=== PATIENT | male | born 1995 | race Caucasian/White ===

== ENCOUNTER 2017-08-13 14:00 | Inpatient (IN) ==
[2017-08-13 14:43] LABS: Basophils # 0.1 K/mm3 (0-0.2); Basophils % 0.3 % (0.1-2.0); Eosinophils # 0.2 K/mm3 (0.0-0.4); Eosinophils % 1.1 % (0.1-12.0); Hemoglobin 16.8 g/dL (14.1-18.0); Lymphocytes % 6.5 K/mm3 (10-50); Mean Corpuscular Hemoglobin 32.2 pg (27.0-31.2); Mean Platelet Volume 7.7 fl (7.4-10.4); Monocytes # 1.3 K/mm3 (0.1-1.0); Monocytes % 8.5 % (1.7-9.3); Neutrophils # 13.1 K/mm3 (1.8-7.8); Neutrophils % 83.6 % (37.0-80.0); Platelet Count 194 K/mm3 (142-424); Red Blood Count 5.21 M/mm3 (4.60-6.20); Red Cell Distribution Width 12.6 % (11.5-17.5); White Blood Count 15.7 K/mm3 (4.8-10.8)
[2017-08-13 14:53] LABS: Albumin Level 3.9 gm/dL (3.4-5.0); Anion Gap 11.1 mEq/L (5-15); Bilirubin,Total 0.7 mg/dL (0.2-1.0); Calcium 9.3 mg/dL (8.5-10.1); Globulin 3.8 gm/dl (1.3-3.2); Potassium 4.1 mmoL/L (3.5-5.1); Total Protein,Serum 7.7 gm/dL (6.4-8.2)
[2017-08-13 15:12] LABS: Eosinophils % 1 % (0-3); Lymphocytes % 6 % (10-50); Monocytes % 7 % (2-9); Neutrophils % 86 % (42-76); Total Cells Counted 100
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
[2017-08-13 15:41] LABS: Appearance,Urine SL CLOUDY (Clear); Bilirubin,Urine Negative (Negative); Blood, Urine 1+ (Negative); Color,Urine YELLOW (Yellow); Glucose,Urine (UA) Negative (Negative); Ketones,Urine Negative (Negative); Leukocyte Esterase,Urine Negative (Negative); Microscopic, Urine URINE MICROSCOPIC (MICROSCOPIC); Protein,Urine Negative (Negative); Specific Gravity, Urine 1.025 (1.005-1.030)
[2017-08-13 15:48] LABS: Bacteria,Urine 3+ /lpf; Squamous Epithelial Cell,Urine Occasional #/hpf (0-5)
[2017-08-13 15:57] LABS: Amphetamine/Metha Screen,Urine Negative ng/mL (<1000); Barbiturates Screen,Urine Negative ng/mL (<200); Benzodiazepines Screen,Urine Negative ng/mL (200); Cannabinoid Screen,Urine Negative ng/mL (<50); Cocaine Screen,Urine Negative ng/g (<300); Methadone Screen,Urine Negative ng/mL (<300); Opiate Screen,Urine Negative ng/mL (<300); Phencyclidine Screen,Urine Negative ng/mL (<25)
[2017-08-13 19:04] LABS: Appearance,CSF Clear (Clear); Mononuclear WBCs,CSF 92 %; Polynuclear WBCs,CSF 8 %; Red Blood Cell,CSF 2 cells/uL (0); White Blood Cell,CSF 5 cells/uL (0-5)
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
--- NOTE | 2017-08-14 07:42 | Pharmacy Consult Notes ---
[facility] Pharmacy VTE Monitoring - Patient Demographics Admission date: 08/13/17 Report Date: 08/14/17 Time: 07:42 Allergies/Adverse Reactions: Patient Allergies No Known Allergies Allergy (Unverified 03/13/17 14:20) Height: 1.65 m Weight: 72.83 kg Patient Problems: Current Active Problems Viral meningitis (Acute) Fever (Acute) Leukocytosis (Acute) - VTE Risk Labs: VTE Related Lab Results Hgb 16.8 g/dL (14.1-18.0) 08/13/17 14:30 Hct 48.0 % (42.0-52.0) 08/13/17 14:30 Plt Count 194 K/mm3 (142-424) 08/13/17 14:30 BUN 11 mg/dL (7-18) 08/13/17 14:30 Creatinine 0.91 mg/dL (0.70-1.30) 08/13/17 14:30 Estimated Creat Clear 134 mL/min (0-300) 08/13/17 14:30 Was VTE Risk Assessment Performed: Yes VTE Score: 2 VTE Risk Level: Very Low Risk - Prophylaxis VTE Prophylaxis Ordered?: Yes Types of VTE Prophylaxis: TEDS Knee High Location of Applied Device: Bilateral Lower Extremeties - VTE Diagnosis Confirmed Treatment or plan recommended: Continue Current Treatment
[2017-08-14 08:38] LABS: Basophils % 0.3 % (0.1-2.0); Eosinophils # 0.2 K/mm3 (0.0-0.4); Eosinophils % 1.4 % (0.1-12.0); Lymphocytes % 8.4 K/mm3 (10-50); Mean Corpuscular HGB Conc 35.8 g/dL (31.8-35.4); Mean Corpuscular Hemoglobin 32.9 pg (27.0-31.2); Mean Corpuscular Volume 91.7 fl (80-94); Mean Platelet Volume 8.8 fl (7.4-10.4); Monocytes # 0.7 K/mm3 (0.1-1.0); Monocytes % 5.9 % (1.7-9.3); Neutrophils # 9.8 K/mm3 (1.8-7.8); Neutrophils % 83.9 % (37.0-80.0); Platelet Count 146 K/mm3 (142-424); Red Blood Count 4.47 M/mm3 (4.60-6.20); Red Cell Distribution Width 12.5 % (11.5-17.5); White Blood Count 11.7 K/mm3 (4.8-10.8)
[2017-08-14 08:49] LABS: Hemoglobin 14.7 g/dL (14.1-18.0)
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
--- NOTE | 2017-08-14 09:08 | Progress Note ---
Internal Medicine - PN: Subj *Date: 08/14/17 *Time: 09:04 Interval history: The patient is comfortable this morning. He is coughing and congested. He has a history of asthmatic bronchitis since childhood. He uses inhalers intermittently. He still has some back pain but not neck pain. He does not have headache. He smokes 1/2-1 pack of cigarettes per day. On auscultation he has some decreased breath sounds and wheezes which are more prominent on the left. He does have rattling cough. Chest x-ray was obtained this morning and does not show pneumonia at this point. I do not feel that the patient has meningitis. He will be continued on Rocephin and azithromycin will be initiated. Vancomycin will not be continued at this point. Duo nebs will be added to his regimen. Exam Vital signs and Labs for Last 24 Hours: Temp Pulse Resp BP Pulse Ox 99.4 F 107 H 18 119/84 98 08/14/17 07:28 08/14/17 07:28 08/14/17 07:28 08/14/17 07:28 08/14/17 07:28 Laboratory Results - last 24 hr 08/13/17 14:30: WBC 15.7 H, RBC 5.21, Hgb 16.8, Hct 48.0, MCV 92.0, MCH 32.2 H, MCHC 35.0, RDW 12.6, Plt Count 194, MPV 7.7, Neut % (Auto) 83.6 H, Lymph % (Auto ) 6.5 L, [place] % (Auto) 8.5, Eos % (Auto) 1.1, Baso % (Auto) 0.3, Neut # (Auto) 13.1 H, Lymph # (Auto) 1.0, [place] # (Auto) 1.3 H, Eos # (Auto) 0.2, Baso # (Auto ) 0.1, Total Counted 100, Neutrophils % (Manual) 86 H, Lymphocytes % (Manual) 6 L, Monocytes % (Manual) 7, Eosinophils % (Manual) 1, Platelet Estimate Normal 08/13/17 14:30: Sodium 137, Potassium 4.1, Chloride 101, Carbon Dioxide 29, Anion Gap 11.1, BUN 11, Creatinine 0.91, Estimated Creat Clear 134, Estimated GFR 104, Est GFR ( Amer) 126, Glucose 104, Calcium 9.3, Total Bilirubin 0.7, AST 29, ALT 35, Alkaline Phosphatase 121 H, Total Protein 7.7, Albumin 3.9 , Globulin 3.8 H, Albumin/Globulin Ratio 1.0 L 08/13/17 14:30: Lactic Acid 1.3 08/13/17 15:30: Urine Color Yellow, Urine Appearance Sl cloudy, Urine pH 6.0, Ur Specific [place] 1.025, Urine Protein Negative, Urine Glucose (UA) Negative, Urine Ketones Negative, Urine Blood 1+, Urine Nitrate Negative, Urine Bilirubin Negative, Urine Urobilinogen 1.0, Ur Leukocyte Esterase Negative, Urine RBC 3-5 , Urine WBC 5-10, Ur Squamous Epith Cells Occasional, Urine Bacteria 3+ 08/13/17 15:30: Urine Opiates Screen Negative, Ur Barbituates Screen Negative, Ur Phencyclidine Scrn Negative, Ur Amphetamines Screen Negative, U Methamphetamines Scrn Negative, U Benzodiazepines Scrn Negative, Urine Cocaine Screen Negative, U Marijuana (THC) Screen Negative 08/13/17 17:40: CSF Volume 8, CSF Appearance Clear, CSF WBC 5, CSF RBC 2, CSF Mononuclear WBCs % 92, CSF Polynuclear WBCs % 8 08/13/17 17:40: CSF Glucose 70 08/13/17 17:40: CSF Total Protein 40.2 08/14/17 08:01: WBC 11.7 H D, RBC 4.47 L, Hgb 14.7 D, Hct 41.0 L, MCV 91.7, MCH 32.9 H, MCHC 35.8 H, RDW 12.5, Plt Count 146, MPV 8.8, Neut % (Auto) 83.9 H , Lymph % (Auto) 8.4 L, [place] % (Auto) 5.9, Eos % (Auto) 1.4, Baso % (Auto) 0.3, Neut # (Auto) 9.8 H, Lymph # (Auto) 1.0, [place] # (Auto) 0.7, Eos # (Auto) 0.2, Baso # (Auto) 0.0 I & O for Last 24 hours: Intake & Output 08/11/17 08/12/17 08/13/17 08/14/17 11:59 11:59 11:59 11:59 Intake Total 1740 / 1740 Output Total 500 / 500 Balance 1240 / 1240 Weight 160 lb 9 oz Microbiology Reports for the Last 24 Hours: Microbiology 08/13/17 17:40 Cerebral Spinal Fluid Gram Stain - Final - Constitutional no acute distress - *Routine HEENT Exam Head: Present: normocephalic Eye: Present: PERRL ENT: Present: mucous membranes moist - *Routine Neck Exam Present: supple - *Routine Respiratory Exam Present: decreased breath sounds, wheezes - *Routine Cardiovascular Exam Present: RRR - *Routine Neurological Exam Present: alert, oriented X3. Absent: altered mental status Assessment and Plan (1) Asthmatic bronchitis with acute exacerbation Current visit: Yes Status: Acute Category: Medical Code(s): J45.901 - Unspecified asthma with (acute) exacerbation (2) Fever Current visit: Yes Status: Acute Qualifiers: Fever type: unspecified Qualified Code(s): R50.9 - Fever, unspecified Category: Medical Code(s): R50.9 - Fever, unspecified (3) Leukocytosis Current visit: Yes Status: Acute Qualifiers: Leukocytosis type: unspecified Qualified Code(s): D72.829 - Elevated white blood cell count, unspecified Category: Medical Code(s): D72.829 - Elevated white blood cell count, unspecified
[2017-08-15 06:48] LABS: Basophils # 0.1 K/mm3 (0-0.2); Basophils % 0.6 % (0.1-2.0); Eosinophils # 0.2 K/mm3 (0.0-0.4); Hematocrit 37.6 % (42.0-52.0); Lymphocytes # 1.6 K/mm3 (0.7-4.5); Lymphocytes % 20.8 K/mm3 (10-50); Mean Corpuscular HGB Conc 34.9 g/dL (31.8-35.4); Mean Corpuscular Hemoglobin 32.6 pg (27.0-31.2); Mean Corpuscular Volume 93.5 fl (80-94); Mean Platelet Volume 8.6 fl (7.4-10.4); Monocytes # 0.7 K/mm3 (0.1-1.0); Monocytes % 8.5 % (1.7-9.3); Neutrophils # 5.2 K/mm3 (1.8-7.8); Neutrophils % 67.1 % (37.0-80.0); Platelet Count 125 K/mm3 (142-424); Red Blood Count 4.02 M/mm3 (4.60-6.20); Red Cell Distribution Width 12.6 % (11.5-17.5); White Blood Count 7.7 K/mm3 (4.8-10.8)
[2017-08-15 07:00] LABS: Hemoglobin 13.1 g/dL (14.1-18.0)
[2017-08-15 07:05] LABS: Anion Gap 10.5 mEq/L (5-15); Potassium 3.5 mmoL/L (3.5-5.1)
[2017-08-15 07:29] VITALS: BP 105/58
--- NOTE | 2017-08-15 07:52 | Progress Note ---
Internal Medicine - PN: Subj *Date: 08/15/17 *Time: 07:48 Interval history: Patient states he feels better this morning. He got a little bit asleep. He is eating without difficulty. Cough is less and sometimes productive. He is not short of breath. He has been ambulating in the room. He hurts on the right side, right hip, right chest, right scapula, and top and back of head. Discomfort is better. He is voiding without difficulty Exam Vital signs and Labs for Last 24 Hours: Temp Pulse Resp BP Pulse Ox 97.0 F L 93 H 16 105/58 99 08/15/17 07:28 08/15/17 07:28 08/15/17 07:28 08/15/17 07:28 08/15/17 04:00 Laboratory Results - last 24 hr 08/14/17 08:01: WBC 11.7 H D, RBC 4.47 L, Hgb 14.7 D, Hct 41.0 L, MCV 91.7, MCH 32.9 H, MCHC 35.8 H, RDW 12.5, Plt Count 146, MPV 8.8, Neut % (Auto) 83.9 H , Lymph % (Auto) 8.4 L, [place] % (Auto) 5.9, Eos % (Auto) 1.4, Baso % (Auto) 0.3, Neut # (Auto) 9.8 H, Lymph # (Auto) 1.0, [place] # (Auto) 0.7, Eos # (Auto) 0.2, Baso # (Auto) 0.0 08/15/17 06:37: WBC 7.7 D, RBC 4.02 L, Hgb 13.1 L D, Hct 37.6 L, MCV 93.5, MCH 32.6 H, MCHC 34.9, RDW 12.6, Plt Count 125 L, MPV 8.6, Neut % (Auto) 67.1, Lymph % (Auto) 20.8, [place] % (Auto) 8.5, Eos % (Auto) 3.0, Baso % (Auto) 0.6, Neut # (Auto) 5.2, Lymph # (Auto) 1.6, [place] # (Auto) 0.7, Eos # (Auto) 0.2, Baso # (Auto) 0.1 08/15/17 06:37: Sodium 140, Potassium 3.5, Chloride 106, Carbon Dioxide 27, Anion Gap 10.5, BUN 7 D, Creatinine 0.82, Estimated Creat Clear 146, Estimated GFR 117, Est GFR ( Amer) 142, Glucose 107 H I & O for Last 24 hours: Intake & Output 08/12/17 08/13/17 08/14/17 08/15/17 11:59 11:59 11:59 11:59 Intake Total 1740 / 1740 4179 / 4179 Output Total 500 / 500 1999 Balance 1240 / 1240 2179 / 2179 Weight 160 lb 9 oz Microbiology Reports for the Last 24 Hours: Microbiology 08/13/17 15:30 Urine,Clean Catch Urine Culture - Final Multiple organisms, suggests contamination. 08/13/17 17:40 Cerebral Spinal Fluid Gram Stain - Final 08/13/17 17:40 Cerebral Spinal Fluid CSF Culture - Preliminary NO GROWTH AFTER 24 HOURS 08/13/17 Unknown Cerebral Spinal Fluid - Final Not Reportable 08/13/17 Unknown Cerebral Spinal Fluid - Final Not Reportable 08/13/17 Unknown Cerebral Spinal Fluid - Final Not Reportable 08/13/17 Unknown Cerebral Spinal Fluid - Final Not Reportable 08/13/17 Unknown Cerebral Spinal Fluid - Final Not Reportable 08/13/17 Unknown Cerebral Spinal Fluid - Final Not Reportable 08/13/17 Unknown Cerebral Spinal Fluid - Final Not Reportable 08/13/17 Unknown Cerebral Spinal Fluid - Final Not Reportable - Constitutional no acute distress - *Routine Respiratory Exam Comments: Few left basilar crackles - *Routine Cardiovascular Exam Present: RRR - *Routine Abdominal Exam Present: soft, normoactive bowel sounds. Absent: tenderness, distended - *Routine Extremities Exam Present: full ROM, pulses intact. Absent: edema, calf tenderness - *Routine Neurological Exam Present: alert, oriented X3 Assessment and Plan (1) Asthmatic bronchitis with acute exacerbation Current visit: Yes Status: Acute Category: Medical Code(s): J45.901 - Unspecified asthma with (acute) exacerbation (2) Fever Current visit: Yes Status: Acute Qualifiers: Fever type: unspecified Qualified Code(s): R50.9 - Fever, unspecified Category: Medical Code(s): R50.9 - Fever, unspecified (3) Leukocytosis Current visit: Yes Status: Acute Qualifiers: Leukocytosis type: unspecified Qualified Code(s): D72.829 - Elevated white blood cell count, unspecified Category: Medical Code(s): D72.829 - Elevated white blood cell count, unspecified - Assessment and plan all Dx Assessment and Plan for all problems:: Continue with antibiotics and duo nebs. Possibly home today.
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
== END 2017-08-15 10:46 | disposition home or self-care (01) ==
LOC: ER 14:00 → 2ND 14:00 → OBSVTOIN 20:20 → 2ND 20:23
PROVIDERS: ADMIT Family Medicine; ATTEND Family Medicine

== ENCOUNTER 2023-03-07 21:43 | Emergency (ER) | payer OTHER, SELFPAY ==
[2023-03-07 21:44] VITALS: BP 144/113; PULSE 92; RESP 18; TEMP 36.9; O2SAT 97; BMI 26.9
--- NOTE | 2023-03-07 21:53 | ECG_ITS ---
APPROVED REPORT Exam: Resting ECG HR:80 bpm ECG Measurements Heart Rate 80 AXES NC 150 P 75 QRSd 103 QRS 81 QT 375 T 57 QTc 411 Conclusion SINUS RHYTHM INCOMPLETE RIGHT BUNDLE BRANCH BLOCK [90+ ms QRS DURATION, TERMINAL R IN V1/V2, 40+ ms S IN I/aVL/V4/V5/V6] BORDERLINE ECG UNCONFIRMED REPORT Electronically signed by : Abdullahi Mcclendon MD 03/08/2023 14:48:00
--- NOTE | 2023-03-07 21:57 | PC.NURSE ---
Seizure pads placed on patient's bed side rails
[2023-03-07 22:25] LABS: Basophils # 0.1 K/mm3 (0-0.2); Basophils % 0.7 % (0.1-2.0); Eosinophils # 0.2 K/mm3 (0.0-0.4); Eosinophils % 1.4 % (0.1-12.0); Hematocrit 52.6 % (42.0-52.0); Lymphocytes # 2.5 K/mm3 (0.7-4.5); Lymphocytes % 19.5 % (10-50); Mean Corpuscular HGB Conc 34.9 g/dL (31.8-35.4); Mean Corpuscular Hemoglobin 36.2 pg (27.0-31.2); Mean Corpuscular Volume 103.6 fl (80-94); Mean Platelet Volume 9.6 fl (7.4-10.4); Monocytes # 0.7 K/mm3 (0.1-1.0); Monocytes % 5.5 % (1.7-9.3); Neutrophils # 9.3 K/mm3 (1.8-7.8); Neutrophils % 72.9 % (37.0-80.0); Platelet Count 207 K/mm3 (142-424); Red Blood Count 5.08 M/mm3 (4.60-6.20); Red Cell Distribution Width 13.7 % (11.5-17.5); White Blood Count 12.8 K/mm3 (4.8-10.8)
[2023-03-07 22:29] LABS: Alanine Aminotransferase 51 U/L (12-78); Alkaline Phosphatase 77 U/L (38-126); Aspartate Amino Transferase 107 U/L (17-59); Bilirubin,Total 0.9 mg/dl (0.2-1.3); Blood Urea Nitrogen 9 mg/dl (9-20); Carbon Dioxide 28 mmol/L (22.0-30.0); Chloride 102 mmol/L (98-107); Creatinine Clearance Estimated 127 mL/min (50-200); Estimated Glomerular Filt Rate 100 ml/min (>60); GFR (African American) 122 ML/MIN (>60)
[2023-03-07 22:30] LABS: Glucose 92 mg/dl (74-100); Hemoglobin 18.4 g/dL (14.1-18.0); Total Protein,Serum 7.8 g/dl (6.3-8.2)
[2023-03-07 22:31] LABS: Albumin Level 4.7 g/dl (3.5-5.0); Albumin/Globulin Ratio 1.5 (1.1-1.8); Anion Gap 13.8 mEq/L (5-15); Globulin 3.1 g/dL (1.3-3.2); Potassium 3.8 mmoL/L (3.5-5.1); Sodium 140 mmol/L (136-145)
[2023-03-07 22:40] LABS: Lactic Acid 2.2 mmol/L (0.7-2.1)
[2023-03-07 22:42] LABS: Troponin I < 0.01 ng/ml (0.00-0.034)
--- NOTE | 2023-03-07 22:46 | [facility].EDGENADL ---
Discharge Plan Disposition Patient Disposition: Home, Self-Care Chief Complaint: Seizure Prescriptions Prescriptions: No Action cefdinir 300 MG capsule 300 mg PO BID Qty: 14 0RF albuterol sulfate 18 GM HFA aerosol inhaler 2 puffs IH Q6HP PRN (Reason: Shortness Of Breath Or Wheezing) Qty: 1 0RF Referrals Follow up/Referrals: Zeinab Ulloa [Primary Care Provider] - See instructions Clinical Impressions Clinical Impression: Seizure-like activity Instructions Patient Instructions: DI for Seizure Disorder -- Adult, DI for Seizure (Not Epilepsy/Seizure Disorder), DI for Seizure Disorder -- Child Discharge ED Provider: Osmar Guzman General Adult HPI General Chief complaint: Seizure Stated complaint: passed out 03/07 @2039 Time Seen by Provider: 03/07/23 22:02 Mode of Arrival: Wheelchair Source of Information: Patient Limitations: No Limitations Description of Symptoms (Recalled from ER Triage Doc. by RN): Presents to ED with c/o seizure activity reports he was out for 5-7 minutes. Patient reports he was recently dx with seizures that only occur during night time. Denies hitting head. PAtient states he is suppose to be following up with PCP tomorrow to discuss medication options for seizures. PMH: Htn History of Present Illness HPI narrative: Patient is a 27-year-old male with past medical history of hypertension, daily alcohol use who presents emergency department for evaluation of seizure-like activity. Over the last few weeks patient has had episodes where he feels sweaty, feels his body is about to lock up so he lays in the floor and does not remember what happened next. states that ranging between 30 seconds and 5 minutes in duration patient's eyes rolled back, eyes are open, rhythmic movement of the bilateral upper and lower extremities with confusion afterwards with slow return to baseline. Patient has had 3 episodes in the last 24 hours causing her to present here for continued evaluation. Patient normally drinks 1 pint of whiskey a day. No IV drug use. No other acute complaints at this time. Related Data Previous Rx's Medication Instructions Recorded albuterol sulfate 90 mcg/actuation 2 puffs IH Q6HP PRN Shortness Of 08/15/17 aerosol inhaler Breath Or Wheezing #1 inh cefdinir 300 mg capsule 300 mg PO BID #14 caps 08/15/17 Allergies Allergy/AdvReac Type Severity Reaction Status Date / Time No Known Allergies Allergy Unverified 03/13/17 14:20 [facility] Disclaimer: The information contained in this section may have been updated after the patient was seen, as this information can be updated by other users. Social History Smoking Status: Current every day smoker alcohol intake: never current occupational status: employed Travel in the last 8 weeks: None ROS Obtained: Yes Systems reviewed as appropriate & no additional complaints except as documented Physical Exam General General appearance: alert and in no apparent distress Head Head exam: atraumatic and normocephalic Eye Eye exam: Present PERRL and EOMI ENT ENT exam: Present mucous membranes moist Neck Neck exam: Present normal inspection Chest Chest inspection: Present normal inspection and symmetric chest wall rise Respiratory Respiratory exam: Present normal lung sounds bilaterally; Absent respiratory distress Cardiovascular Cardiovascular exam: Present regular rate and normal rhythm Abdominal Exam Abdominal exam: Present soft; Absent tenderness Extremities Exam Extremities exam: Present normal inspection Neurological Exam Neurological exam: Present alert, oriented X3 and CN II-XII intact; Absent motor sensory deficit Psychiatric Psychiatric exam: Present normal affect Skin Skin exam: Present warm and dry Medical Decision Making Melvin Inquiry Pt receiving controlled substance: No Vital Signs: 03/07/23 21:44 Temperature 98.4 F Temperature Source Oral Pulse Rate [Right] 92 H Res
[2023-03-07 23:01] VITALS: BP 144/113; PULSE 89; RESP 17; TEMP 36.9; O2SAT 97
[2023-03-07 23:09] LABS: Magnesium 1.8 mg/dl (1.6-2.3)
[2023-03-07 23:16] LABS: Ethyl Alcohol 348 mg/dl (0-10)
[2023-03-07 23:41] LABS: Thyroid Stimulating Hormone 1.69 uIU/mL (0.465-4.68)
== END 2023-03-07 23:04 | disposition left against medical advice (07) ==
PROVIDERS: Emergency Provider Emergency Medicine; PCP Nurse Practitioner Family
DX: R56.9 Unspecified convulsions (principal); I10 Essential (primary) hypertension; F17.200 Nicotine dependence, unspecified, uncomplicated
CPT/HCPCS: 80053; 83605; 83735; 84443; 84484; 85025; 93005; 99285